=== PATIENT | male | born 1970 | race Caucasian/White ===

== ENCOUNTER 2018-04-17 11:06 | Day surgery (SDC) | payer BC ==
[2018-04-17] MEDS ORDERED: PROPOFOL 10 MG/ML VIAL IV ONE (11:07)
[2018-04-17] MEDS ORDERED: MIDAZOLAM HCL 2MG/2ML VIAL IV ONE (11:07)
[2018-04-17] MEDS ORDERED: LIDOCAINE 2% MDV (20MG/ML) 20ML VIAL IV ONE (11:07)
--- NOTE | 2018-04-18 09:50 | Operative Note ---
DATE OF SURGERY: 04/17/2018 OPERATION: COLONOSCOPY to the cecum and terminal ileum with cold biopsy forceps polypectomy x1. INDICATION: Family history of colon cancer (mother). The patient also has a history of perirectal abscess with fistula. He had abscess drainage and subsequent fistulectomy by Dr. Germán Corrales (Chris). He presents today for screening evaluation and particularly to evaluate for possible Crohn disease. His last examination was in 2016; 3 years ago. ANESTHESIA: Intravenous sedation was administered by the department of anesthesiology and included Diprivan titrated to effect. PROCEDURE: Following informed consent from this alert individual including a discussion of the risks and benefits of the procedure and an opportunity for the patient to ask questions, the patient was in the left lateral decubitus position. A digital rectal examination was performed. No abnormalities were noted. Following this, the Olympus [id number] video colonoscope was inserted into the rectum without resistance. The rectal mucosa had a normal appearance with normal folds and distensibility. The colonoscope was advanced up through the colon to the level of the cecum without much difficulty. Throughout the bowel the mucosa appeared normal, the folds were normal, and the bowel was fairly well distensible. The cecum was defined by noting the appendiceal orifice and ileocecal valve. The terminal ileum was then cannulated for more than 20 cm and found to be completely unremarkable. There was no evidence of inflammatory bowel disease. From the cecum, retroflexion was first accomplished and failed to demonstrate any changes. Overall, the colon preparation was good. From the base of the cecum, the colonoscope was then withdrawn. No abnormalities were noted until the sigmoid colon was reached. Within the distal sigmoid colon, there was a diminutive 3 mm polyp noted which was removed with biopsy forceps. The rectum was then evaluated thoroughly and failed to demonstrate changes other than small internal hemorrhoids noted best on retroflexion. The endoscope was straightened and removed. The patient tolerated the procedure well and was returned to the recovery area in stable condition. IMPRESSION: 1. Normal terminal ileum. 2. Diminutive 3 mm sigmoid polyp removed with biopsy forceps. 3. Small internal hemorrhoids. RECOMMENDATIONS: The patient was advised to have recheck colonoscopy in 5 years' time or sooner should problems arise. Followup will be with Dr. Zainab Sanabria. As always, thank you for allowing me to participate in the care of your patient. CC: Zainab Sanabria, DO Dr. Alexis WARD
== END 2018-04-17 13:20 | disposition home or self-care (01) ==
LOC: HOP 11:06
PROVIDERS: ATTEND Internal Medicine Gastroenterology
DX: Z12.11 Encounter for screening for malignant neoplasm of colon (principal); Z80.0 Family history of malignant neoplasm of digestive organs; Z87.19 Personal history of other diseases of the digestive system; K63.5 Polyp of colon; I10 Essential (primary) hypertension